=== PATIENT | male | born 1970 | race Caucasian/White ===

== ENCOUNTER 2016-11-02 11:09 | Observation (INO) ==
[2016-11-02] MEDS ORDERED: NS 1,000 ML IV ONE ×2 (12:07→13:35)
[2016-11-02] MEDS ORDERED: NS 1,000 ML IV SCH (12:09)
[2016-11-02 12:24] LABS: MANUAL DIFF NEEDED? NO
--- NOTE | 2016-11-02 12:27 | Diag Imaging Result Doc PS360 ---
EXAM: CHEST-PORTABLE HISTORY: hypotension TECHNIQUE: Erect AP portable at 1220 COMMENT: There is no evidence of acute cardiac or pulmonary disease. Compared to 11/06/2014 there is been no significant change. IMPRESSION: Stable chest. Electronically signed by Jaren Hunter 11/02/2016 12:25 PM
[2016-11-02 12:33] LABS: BASO% 0.6 % (0.0-0.8); EOS# 0.14 X1000 (0.0-0.7); EOS% 2.1 % (0.0-10.0); HEMATOCRIT 36.4 % (42.0-52.0); HEMOGLOBIN 12.4 g/dL (14.0-18.0); IMM GRAN# 0.02 X1000 (0.0-0.04); IMM GRAN% 0.3 % (0.0-0.5); LYMPH# 1.78 X1000 (1.2-3.4); LYMPH% 26.6 % (20.5-51.1); MCH 29.9 PG (27-31); MCHC 34.1 g/dL (33-37); MCV 87.7 FL (81-99); MONO# 0.53 X1000 (0.11-0.59); MONO% 7.9 % (1.7-9.3); MPV 9.5 FL (7.4-10.4); NEUT% 62.5 % (42.2-75.2); PLT 327 X1000 (130-400); RBC 4.15 XMIL (4.7-6.1)
[2016-11-02 12:40] LABS: INR 0.99; PROTIME 10.4 Seconds (9.2-11.7)
[2016-11-02 12:49] LABS: ALBUMIN 3.7 g/dL (3.5-5.0); CALCIUM 8.2 mg/dL (8.8-10.2); POTASSIUM 3.9 mmol/L (3.5-5.1); TOTAL BILIRUBIN 0.27 mg/dL (0.20-1.00); TOTAL PROTEIN 5.5 g/dL (6.3-8.3)
--- NOTE | 2016-11-02 16:32 | PROVIDER DOCUMENTATION ---
This chart was entered by Sloane Constantino Scribe, acting as scribe for Gurpreet Caruso MD. HPI-General Adult - General Chief Complaint: B/P Problems Stated Complaint: POSS BP ISSUES Time Seen by Provider: 11/02/16 11:43 Source: patient Allergies/Adverse Reactions: Patient Allergies Allergy/AdvReac Type Severity Reaction Status Date / Time doxycycline Allergy NAUSEA/VOMI Verified 07/29/16 13:34 TING egg Allergy Unknown Verified 07/29/16 13:34 Tetracyclines Allergy NAUSEA/VOMI Verified 11/02/16 12:09 TING Home Medications: Home Medication List Medication Instructions Recorded Confirmed Last Taken Type Lisinopril 40 mg PO DAILY 05/21/12 11/02/16 11/02/16 07:00 History PRAVAstatin [Pravachol] 40 mg PO QHS 02/25/14 11/02/16 11/01/16 21:00 History Hydrochlorothiazide 25 mg PO QAM 11/06/14 11/02/16 11/02/16 07:00 History Esomeprazole [Nexium] 40 mg PO DAILY 04/24/15 11/02/16 11/02/16 07:00 History Tamsulosin [Flomax] 0.4 mg PO QHS #10 capsule 05/23/16 11/02/16 11/01/16 21:00 Rx Amitriptyline [Elavil] 25 mg PO BID 11/02/16 11/02/16 11/01/16 21:00 History Tizanidine HCl [Tizanidine HCl] 4 mg PO TID 11/02/16 11/02/16 11/02/16 07:00 History 2 mg - History of Present Illness -Gen Adult Nature of Presenting Problems: 46 Y/O M presents to the ER with the complain of feeling fatigue, muscle soreness and high Bp this morning.pt states that when he checked his bp was high this morning and is on BP medications. pt states that he feels muscle tightness. pt denies any other symptoms. Location of Pain/Injury: reports: other (muscle tightness) Onset/Duration: reports: this morning Timing: reports: still present Associated Symptoms: reports: other (high BP and muscle tightness) Review of Systems - Adult - REVIEW OF SYSTEMS - ADULT Constitutional: reports: no symptoms reported Eyes: reports: no symptoms reported Ears, Nose, Mouth & Throat: reports: no symptoms reported Cardiovascular: reports: other (High BP). denies: chest pain Respiratory: reports: no symptoms reported Gastrointestinal: reports: no symptoms reported Genitourinary: reports: no symptoms reported Musculoskeletal: reports: muscle aches. denies: back pain, neck pain Integumentary: reports: no symptoms reported Neurological: reports: no symptoms reported Psychiatric: reports: no symptoms reported Endocrine: reports: no symptoms reported Hematologic/Lymphatic: reports: no symptoms reported Allergic/Immunologic: reports: no symptoms reported All Other Systems: Reviewed and Negative Past History - Adult - PAST MEDICAL HISTORY-ADULT Review of Records: reports: Old Records Reviewed, Nursing Assessment Review Major Childhood Illnesses: reports: denies history Cardiovascular: reports: HTN, hyperlipidemia Gastrointestinal: reports: colitis Other Conditions: reports: MRSA (abscess in May 2012) - PRIOR SURGERIES/PROCEDURES Surgical/Procedure History: reports: tonsillectomy, orthopedic (extremity) ( right great knee), back/neck (neck fusion), other (bone spurs right great toe) - IMMUNIZATION STATUS Childhood Immunizations: See Nurse Assessment Flu Vaccine: See Nurse Assessment - FAMILY HISTORY Family History: reviewed, not pertinent Physical Exam-General - PHYSICAL EXAM-ADULT Initial Vital Signs Reviewed: Yes - CONSTITUTIONAL General Appearance: appears well, alert - EYES Eyes: PERRL/EOMI, pink conjunctivae - HEAD, EARS, NOSE, MOUTH & THROAT HENMT: moist mucous membranes, normal ENT inspection - NECK Neck: non-tender, full range of motion - RESPIRATORY Respiratory: lungs clear, normal breath sounds - CARDIOVASCULAR Cardiovascular: regular rate, rhythm, no edema - GASTROINTESTINAL (ABDOMEN) Abdominal Exam: non tender, soft - MUSCULOSKELETAL Back Exam: no CVA tenderness, no vertebral tenderness - SKIN Integumentary: normal color, normal turgor, warm/dry - NEUROLOGIC Neurologic: grossly normal, no motor/sensory deficits - PSYCHIATRIC Psych/Mental Status: normal mood/affect, normal thought content, normal thought process, oriented x 3 Progress - PLAN OF CARE/RESULTS Progress/Plan/Lab Results: Vital Signs - 8 hr 11/02/16 11:24 Temperature 97.6 F Pulse Rate 92 H Respiratory Rate 16 Blood Pressure 86/49 O2 Sat by Pulse Oximetry 100 Result Diagrams: 11/02/16 11:47 11/02/16 11:47 - REASSESSMENT Reassessment #1 Time Reassessed: 15:40 (after 2 liters IVF, BP still low) Status: unchanged - EKG 1 Time of EKG reading by physician:: 12:40 EKG Read and Signed by:: Gurpreet Caruso EKG Interpretation (*Must complete 3 of following elements*): Normal Rate: 65 Rhythm: Normal Sinus Rhythm Comments: Normal ECG - XRAY 1 XRAY: Bilateral XRAY Study: Chest Impression: Normal XRAY Interpretation: stable chest by radiologist - CONSULTS/PCP/HOSPITALIST Notification #1 *Consult/PCP/Hospitalist*: Dr. Araiza Time Discussed: 15:43 Reason/Comments: Disccused about pt Departure - Departure Date of Disposition Decision: 11/02/16 Time of Disposition Decision: 16:31 DIAGNOSIS: Hypotension, Dehydration Disposition: ADMITTED INPATIENT 09 Certified Medical Emergency: Emergent Condition: Good - Critical Care Note This patient required my direct & personal management of CC.: No This chart was documented by the indicated scribe, (Sloane Constantino Scribe) and accurately reflects the services I performed and decisions made by me, Gurpreet Caruso MD, as attested by the provider's signature.
[2016-11-02] MEDS ORDERED: ZOFRAN IV PRN (16:38)
[2016-11-02] MEDS ORDERED: TYLENOL PO PRN (16:38)
[2016-11-02] MEDS: NS 1,000 ML IV SCH (17:57)
--- NOTE | 2016-11-02 19:38 | HISTORY AND PHYSICAL ---
PRIMARY CARE PHYSICIAN: Josue Graves MD CHIEF COMPLAINT: "I felt dizzy and my blood pressure was low today at home." HISTORY OF PRESENT ILLNESS: Mr. Bower is a 46-year-old, male with a history of hypertension, obesity and osteoarthritis who presented to the ER today with a chief complaint of a low blood pressure and dizziness. The patient states that he woke up this morning and noticed that he feels very weak and dizzy. He states that whenever he tries to stand up his head would spin and he had a very difficult time maintaining his balance. The patient states that he took his blood pressure and he noticed that his systolic blood pressure was in the 60s. The patient reports that he did take his lisinopril and hydrochlorothiazide today. He denied having any chest pain, shortness of breath, headache or syncope. The patient reports that his blood pressure is normally high. 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 The patient admits that he has not been keeping up on his fluid intake like he should. In the ER, the patient was noted to have a blood pressure of 86/49. His creatinine was also elevated at 1.3 m. While in the ER, the patient received 2 L of normal saline and his systolic blood pressure improved to the 100s. PAST MEDICAL HISTORY: 1. Hypertension. 2. Chronic back pain. 3. Osteoarthritis. 4. Dyslipidemia. PAST SURGICAL HISTORY: 1. Cerebral frontal arachnoid cyst that was removed in 2011. 2. C5-C6 fusion. 3. Tonsillectomy. 4. Adenoidectomy. 5. Bone spur removal from his toe. 6. Right knee replacement. FAMILY HISTORY: Positive for prostate cancer, coronary artery disease and hypertension. SOCIAL HISTORY: The patient is . The patient denies any tobacco, alcohol or illicit drug use. The patient reports that he quit smoking about 4 years ago. ALLERGIES: 1. Doxycycline. 2. Eggs. 3. Tetracycline. HOME MEDICATIONS: 1. Tizanidine 4 mg p.o. 3 times a day. 2. Lisinopril 40 mg p.o. daily. 3. Hydrochlorothiazide 25 mg p.o. every morning. 4. Nexium 40 mg p.o. daily. 5. Flomax 0.4 mg p.o. at bedtime. 6. Pravachol 40 mg p.o. at bedtime. 7. Elavil 25 mg p.o. twice a day. REVIEW OF SYSTEMS: All other review of systems are negative. Please refer to the history of present illness for pertinent positives and negatives. PHYSICAL EXAMINATION: VITAL SIGNS: Temperature 97.6 degrees, blood pressure 86/49. Heart rate 92. Respirations 16. O2 saturations 100% on room air. GENERAL: This is a middle-aged male, lying on the stretcher, in no acute distress. SKIN: No rashes. No lesions. Normal capillary refill. HEAD: Normocephalic, atraumatic. HEART: S1, S2. Normal. Regular rate and rhythm. LUNGS: Clear to auscultation bilaterally. No wheezes, no rales. No rhonchi. ABDOMEN: Positive bowel sounds. Soft, obese, nontender, nondistended. EXTREMITIES: No edema. No cyanosis. No calf tenderness. NEUROLOGIC: The patient is alert and oriented x3. No focal neurologic deficits noted. Cranial nerves 2 through 12 intact. LABORATORY: White blood cell count 6.6, hemoglobin 12, hematocrit 36, platelets 327,000. INR is 0.99. Sodium 137, potassium 3.9, chloride 102, CO2 24, BUN 24, creatinine 1.3, glucose 121, calcium 8.2, magnesium 2, total bilirubin 0.2, AST 13, ALT 24, alkaline phosphatase 53, CK 71, troponin less than 0.01. Total protein 5.5, TSH 1.79, free T4 1. IMAGING: Chest x-ray shows no acute pulmonary disease. ASSESSMENT AND PLAN: 1. Orthostatic hypotension. I suspect that this is secondary to volume depletion. So far the patient has received 2 L of normal saline and his blood pressure is slowly improving. We will continue to hydrate the patient with normal saline and monitor the patient closely on telemetry. We will also check orthostatics every 12 hours. If there is no improvement in the patient's orthostasis, we will order an echocardiogram and consider Cardiology consultation. 2. Dehydration. The patient will be started on normal saline. We will monitor the patient's urine output and blood pressure closely. 3. Acute kidney injury. This is most likely secondary to dehydration. The patient has been started on IV fluids. We will repeat the renal profile in the morning. 4. Morbid obesity. Aware. 5. Osteoarthritis. We will start the patient on p.r.n. pain medication. 6. Dyslipidemia. Continue on Pravachol. 7. Deep vein thrombosis prophylaxis. Will start the patient on Lovenox 40 mg subcutaneous daily. 8. The plan of care was discussed with the patient and his at the bedside. cc: Karie Araiza MD
[2016-11-02] MEDS: PRAVACHOL PO SCH ×2 (19:43→22:02)
[2016-11-02] MEDS: PERCOCET-5 PO PRN (19:48)
[2016-11-03] MEDS: PERCOCET-5 PO PRN (00:04)
[2016-11-03] MEDS: NS 1,000 ML IV SCH (02:14)
--- NOTE | 2016-11-03 05:44 | EKG Report ---
Test Performed on : 11/02/2016 12:40:46 PM Test Reason : Chest Pain Blood Pressure : / mmHG Vent. Rate : 065 BPM Atrial Rate : 065 BPM P-R Int : 196 ms QRS Dur : 100 ms QT Int : 404 ms P-R-T Axes : 046 039 030 degrees QTc Int : 420 ms Normal sinus rhythm. Normal ECG No previous ECGs available Unconfirmed Result
[2016-11-03 06:49] LABS: HEMATOCRIT 37.9 % (42.0-52.0); HEMOGLOBIN 12.9 g/dL (14.0-18.0); MCH 30.9 PG (27-31); MCV 90.7 FL (81-99); MPV 9.6 FL (7.4-10.4); RBC 4.18 XMIL (4.7-6.1)
[2016-11-03 07:00] LABS: AGAP 9; BUN 15 mg/dL (8-22); CALCIUM 8.4 mg/dL (8.8-10.2); CHLORIDE 105 mmol/L (98-107); COSMO 280; POTASSIUM 4.2 mmol/L (3.5-5.1); SODIUM 140 mmol/L (136-145); TCO2 26 mmol/L (25-35)
[2016-11-03] MEDS ORDERED: NEXIUM PO SCH (07:00)
[2016-11-03 07:26] LABS: FERRITIN 67 ng/mL (30-400)
[2016-11-03 07:49] VITALS: BP 118/62
[2016-11-03] MEDS ORDERED: LOVENOX SUBQ SCH (09:00)
--- NOTE | 2016-11-03 21:36 | DISCHARGE SUMMARY ---
ADMISSION DATE: 11/02/2016 DISCHARGE DATE: 11/03/2016 FINAL DISCHARGE DIAGNOSES: 1. Orthostatic hypotension. 2. Dehydration. 3. Acute kidney injury. 4. Morbid obesity. 5. Dyslipidemia. 6. Osteoarthritis. HOSPITAL COURSE: Mr. Bower is a 46-year-old male with a history of hypertension and chronic back pain who presented to the ER with dizziness. On arrival to the ER the patient was noted to be hypotensive with systolic blood pressures in the 80s. The patient was given a total of 2 L of normal saline in the ER. The patient was admitted to the Hospitalist Service and was also noted to have a creatinine of 1.3. After further assessment it was thought that the patient's hypotension was secondary to dehydration. 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 The following day after adequate hydration the patient's renal function normalized and the patient's blood pressure improved off IV fluid hydration. The patient was advised to keep well-hydrated when working in the heat whether that be indoors or outdoors. The patient was also advised to hold his blood pressure medications if his systolic blood pressures were less than 110. The patient improved clinically and was cleared for discharge home on 11/03/2016. DISCHARGE MEDICATIONS: 1. Percocet 5/325, 1 tab oral every 4 hours p.r.n. for pain. 2. Lisinopril 40 mg p.o. daily. 3. Pravastatin 40 mg p.o. at bedtime. 4. Hydrochlorothiazide 25 mg p.o. every morning. 5. Nexium 40 mg p.o. daily. 6. Elavil 25 mg p.o. twice a day. 7. Tizanidine 4 mg p.o. 3 times a day. DISCHARGE DIET: Low-sodium, low-cholesterol diet. ACTIVITY: As tolerated. FOLLOWUP INSTRUCTIONS: The patient will need to follow up with Dr. Graves in 1 week. cc: MD Josue Frausto MD MTDD
== END 2016-11-03 10:00 | disposition home or self-care (01) ==
LOC: ED 11:09 → INTOOBSV 16:26 → 4N 16:26
PROVIDERS: ATTEND Internal Medicine